=== PATIENT | male | born 1965 | race Caucasian/White ===

== ENCOUNTER 2023-06-28 19:38 | Emergency (ER) | payer OTHER ==
[~2023-06-28] VITALS: Ht 182.9 cm; Wt 104.3 kg
[~2023-06-28 19:38] MED LIST: LEVO-62 PO; LOSA100T4 PO; METR500T PO; MIRA25TA PO; OMEP20CA4 PO
[2023-06-28 19:43] VITALS: BP_SYST 133; PULSE 73; RESP 18; TEMP 98.1; O2SAT 98
[2023-06-28] MEDS ORDERED: BACI15OI13 TP (21:36)
[2023-06-28] MEDS ORDERED: CEPH-548 PO (21:36)
[2023-06-28] MEDS ORDERED: HYDR-3927 PO (21:36)
[2023-06-28] MEDS ORDERED: BACITRACIN 1 GM OINT TP ONE (22:00)
[2023-06-28 22:14] VITALS: BP_SYST 128; PULSE 88; RESP 18; TEMP 98.4; O2SAT 98
== END 2023-06-28 22:14 | disposition home or self-care (01) ==
LOC: SED 19:38
DX: T22.231A Burn of second degree of right upper arm, initial encounter (principal); T31.0 Burns involving less than 10% of body surface; Z79.899 Other long term (current) drug therapy; X08.8XXA Exposure to other specified smoke, fire and flames, initial encounter; Y93.89 Activity, other specified; Y92.89 Other specified places as the place of occurrence of the external cause; Y99.8 Other external cause status
CPT/HCPCS: 99283